=== PATIENT | male | born 1950 | race Caucasian/White ===

== ENCOUNTER 2019-07-26 08:46 | Inpatient (IN) | payer MEDICARE ==
[~2019-07-26] VITALS: Ht 172.7 cm; Wt 69.9 kg
--- NOTE | ~2019-07-26 | PROC ---
[facility] [address] [place] [address] PROCEDURE REPORT Name: EVE PAPPAS Room: [address] IN M.R.#: [id number] Admission: 07/26/19 Attend Phys: Liang Castaneda Discharge: 08/02/19 Date of : 48 Report #: [id number] THIS REPORT FOR: //name// cc: Clarisse Chance MD, Katrina MD ~ THIS REPORT FOR: //name// For GI report, please see the Provation report in Perceptive 7 content. By: [facility]3Medical Records Staff [facility] /SINGH
--- NOTE | ~2019-07-26 | PROC ---
[facility] [address] [place] [address] PROCEDURE REPORT Name: EVE PAPPAS Room: [address] IN M.R.#: [id number] Admission: 07/26/19 Attend Phys: Liang Castaneda Discharge: 08/02/19 Date of : 48 Report #: [id number] THIS REPORT FOR: //name// cc: Clarisse Chance MD, Katrina MD ~ THIS REPORT FOR: //name// For GI report, please see the Provation report in Perceptive 7 content. By: [facility]5Medical Records Staff [facility] /SINGH
[2019-07-26 08:54] VITALS: BP 171/97
[2019-07-26] MEDS ORDERED: TYLOPHEN500 MG PO (08:59)
[2019-07-26] MEDS ORDERED: ASPIRIN325 PO (08:59)
[2019-07-26 09:31] LABS: URINE BILIRUBIN NEGATIVE (Negative); URINE BLOOD NEGATIVE (Negative); URINE CLARITY CLEAR; URINE COLOR YELLOW; URINE GLUCOSE-RANDOM NEGATIVE (Negative); URINE KETONES NEGATIVE (Negative); URINE LEUKOCYTES-REFLEX NEGATIVE (Negative); URINE NITRITE-REFLEX NEGATIVE (Negative); URINE PROTEIN NEGATIVE (Negative)
[2019-07-26 09:53] LABS: ABSOLUTE BASOPHILS 0.1 thou/uL (0.0-0.2); ABSOLUTE EOSINOPHILS 0.1 thou/uL (0.0-0.7); ABSOLUTE LYMPHOCYTES 1.3 thou/uL (0.8-5.3); ABSOLUTE MONOCYTES 0.9 thou/uL (0.0-1.2); ABSOLUTE NEUTROPHILS 8.2 thou/uL (1.6-8.1); BASOPHILS 0.5 %; EOSINOPHILS 1.2 %; HEMATOCRIT 41.9 % (42.0-52.0); HEMOGLOBIN 14.1 gm/dL (14.0-18.0); MCH 31.1 pg (26.0-34.0); MCHC 33.6 g/dL (28.0-37.0); MCV 92.6 fL (80.0-100.0); MONOCYTES 8.1 %; MPV 8.4 fl. (7.2-11.1); NUCLEATED RBCS 0 /100WBC; PLATELET COUNT* 337 thou/uL (150-400); POLYS 78.2 %; RBC 4.53 mil/uL (4.50-6.00); RDW-CV 13.5 % (10.5-14.5); WBC 10.5 thou/uL (4.0-11.0)
[2019-07-26 10:01] LABS: CALCIUM 9.3 mg/dL (8.5-10.1); CREATININE 0.8 mg/dL (0.6-1.3); POTASSIUM 4.2 mmol/L (3.5-5.1)
[2019-07-26 10:13] LABS: ALBUMIN 3.5 g/dL (3.4-5.0); TOTAL BILIRUBIN 0.3 mg/dL (<0.1-1.0); TOTAL PROTEIN 8.1 g/dL (6.4-8.2)
[2019-07-26 14:35] VITALS: BP 126/67
[2019-07-26 14:57] VITALS: BP 145/76
[2019-07-26] MEDS ORDERED: ADVIL200 M3 PO (15:41)
[2019-07-26 20:00] VITALS: BP 111/66
[2019-07-26 23:57] VITALS: BP 96/60
[2019-07-27 03:21] LABS: ABSOLUTE LYMPHOCYTES 1.1 thou/uL (0.8-5.3); ABSOLUTE MONOCYTES 0.9 thou/uL (0.0-1.2); ABSOLUTE NEUTROPHILS 9.7 thou/uL (1.6-8.1); BASOPHILS 0.3 %; EOSINOPHILS 0.2 %; HEMATOCRIT 38.9 % (42.0-52.0); LYMPHOCYTES 9.5 %; MCH 30.9 pg (26.0-34.0); MCHC 33.5 g/dL (28.0-37.0); MCV 92.2 fL (80.0-100.0); MONOCYTES 7.4 %; MPV 8.8 fl. (7.2-11.1); NUCLEATED RBCS 0 /100WBC; PLATELET COUNT* 293 thou/uL (150-400); POLYS 82.6 %; RBC 4.22 mil/uL (4.50-6.00); RDW-CV 13.8 % (10.5-14.5); WBC 11.7 thou/uL (4.0-11.0)
[2019-07-27 03:41] LABS: ALBUMIN 2.7 g/dL (3.4-5.0); CALCIUM 8.1 mg/dL (8.5-10.1); CREATININE 0.8 mg/dL (0.6-1.3); POTASSIUM 4.1 mmol/L (3.5-5.1); TOTAL BILIRUBIN 0.9 mg/dL (<0.1-1.0); TOTAL PROTEIN 6.6 g/dL (6.4-8.2)
[2019-07-27 08:00] VITALS: BP 96/60; BP 97/60
[2019-07-27 20:00] VITALS: BP 100/56
[2019-07-28 00:57] VITALS: BP 139/82
[2019-07-28 08:15] VITALS: BP 96/60; BP 98/54
[2019-07-28 13:26] LABS: HEMATOCRIT 35.6 % (42.0-52.0); MCH 31.4 pg (26.0-34.0); MCHC 33.7 g/dL (28.0-37.0); MCV 93.2 fL (80.0-100.0); MPV 9.4 fl. (7.2-11.1); NUCLEATED RBCS 0 /100WBC; PLATELET COUNT* 264 thou/uL (150-400); RBC 3.82 mil/uL (4.50-6.00); WBC 12.2 thou/uL (4.0-11.0)
[2019-07-28 13:35] LABS: ALBUMIN 2.2 g/dL (3.4-5.0); CALCIUM 8.1 mg/dL (8.5-10.1); CREATININE 1.2 mg/dL (0.6-1.3); POTASSIUM 3.5 mmol/L (3.5-5.1); TOTAL BILIRUBIN 3.5 mg/dL (<0.1-1.0); TOTAL PROTEIN 6.1 g/dL (6.4-8.2)
[2019-07-28 13:51] LABS: ABSOLUTE BASOPHILS 0.1 thou/uL (0.0-0.2); ABSOLUTE MONOCYTES 0.5 thou/uL (0.0-1.2); ABSOLUTE NEUTROPHILS 10.6 thou/uL (1.6-8.1); ATYPICAL LYMPHS 3 %; PLATELET ESTIMATE ADEQUATE
[2019-07-28 16:30] VITALS: BP 118/70
[2019-07-28 20:00] VITALS: BP 106/51
[2019-07-28 23:59] VITALS: BP 114/72
[2019-07-29 04:35] LABS: ABSOLUTE LYMPHOCYTES 0.8 thou/uL (0.8-5.3); ABSOLUTE MONOCYTES 0.5 thou/uL (0.0-1.2); ABSOLUTE NEUTROPHILS 9.7 thou/uL (1.6-8.1); BASOPHILS 0.2 %; HEMATOCRIT 32.2 % (42.0-52.0); HEMOGLOBIN 10.8 gm/dL (14.0-18.0); LYMPHOCYTES 7.4 %; MCH 30.8 pg (26.0-34.0); MCHC 33.4 g/dL (28.0-37.0); MCV 92.3 fL (80.0-100.0); MONOCYTES 4.6 %; MPV 9.1 fl. (7.2-11.1); NUCLEATED RBCS 0 /100WBC; PLATELET COUNT* 247 thou/uL (150-400); POLYS 87.8 %; RBC 3.49 mil/uL (4.50-6.00); RDW-CV 13.7 % (10.5-14.5); WBC 11.1 thou/uL (4.0-11.0)
[2019-07-29 05:01] LABS: CALCIUM 8.4 mg/dL (8.5-10.1); CREATININE 0.8 mg/dL (0.6-1.3); POTASSIUM 4.2 mmol/L (3.5-5.1); TOTAL BILIRUBIN 3.7 mg/dL (<0.1-1.0); TOTAL PROTEIN 6.1 g/dL (6.4-8.2)
[2019-07-29 12:18] VITALS: BP 123/67
[2019-07-29 16:33] VITALS: BP 127/66
[2019-07-29 20:00] VITALS: BP 142/87
[2019-07-30] VITALS: BP 135/40
[2019-07-30 04:00] VITALS: BP 115/63; BP 140/42
[2019-07-30 05:22] LABS: ALBUMIN 1.8 g/dL (3.4-5.0); CALCIUM 8.3 mg/dL (8.5-10.1); CREATININE 0.9 mg/dL (0.6-1.3); POTASSIUM 3.7 mmol/L (3.5-5.1); TOTAL PROTEIN 5.8 g/dL (6.4-8.2)
[2019-07-30 05:59] LABS: ABSOLUTE BASOPHILS 0.1 thou/uL (0.0-0.2); ABSOLUTE EOSINOPHILS 0.1 thou/uL (0.0-0.7); ABSOLUTE MONOCYTES 0.7 thou/uL (0.0-1.2); ABSOLUTE NEUTROPHILS 7.6 thou/uL (1.6-8.1); BASOPHILS 0.6 %; EOSINOPHILS 0.9 %; HEMATOCRIT 34.4 % (42.0-52.0); HEMOGLOBIN 11.3 gm/dL (14.0-18.0); LYMPHOCYTES 19.4 %; MCH 30.6 pg (26.0-34.0); MCV 92.9 fL (80.0-100.0); MONOCYTES 6.3 %; MPV 9.4 fl. (7.2-11.1); NUCLEATED RBCS 0 /100WBC; POLYS 72.8 %; RBC 3.71 mil/uL (4.50-6.00); RDW-CV 13.9 % (10.5-14.5); WBC 10.4 thou/uL (4.0-11.0)
[2019-07-30 06:51] LABS: PLATELET COUNT* 287 thou/uL (150-400)
[2019-07-30 07:20] VITALS: BP 124/72
[2019-07-30 11:58] VITALS: BP 118/52
[2019-07-30 16:39] VITALS: BP 115/67
[2019-07-30 20:00] VITALS: BP 127/67
[2019-07-31] VITALS: BP 117/68
[2019-07-31 03:54] VITALS: BP 114/60
[2019-07-31 05:52] VITALS: BP 96/60
[2019-07-31 16:00] VITALS: BP 122/67
[2019-07-31 20:45] VITALS: BP 131/71
[2019-08-01] VITALS: BP 107/54
[2019-08-01 04:33] LABS: HEMATOCRIT 29.8 % (42.0-52.0); MCH 30.5 pg (26.0-34.0); MCHC 33.6 g/dL (28.0-37.0); MCV 90.7 fL (80.0-100.0); MPV 8.2 fl. (7.2-11.1); RBC 3.28 mil/uL (4.50-6.00); RDW-CV 13.9 % (10.5-14.5); WBC 13.9 thou/uL (4.0-11.0)
[2019-08-01 04:56] LABS: ALBUMIN 1.9 g/dL (3.4-5.0); CALCIUM 7.9 mg/dL (8.5-10.1); CREATININE 0.8 mg/dL (0.6-1.3); POTASSIUM 3.9 mmol/L (3.5-5.1); TOTAL BILIRUBIN 0.6 mg/dL (<0.1-1.0); TOTAL PROTEIN 5.7 g/dL (6.4-8.2)
[2019-08-01 04:59] LABS: ALBUMIN 1.9 g/dL (3.4-5.0); DIRECT BILIRUBIN 0.3 mg/dL (<0.1-0.3); TOTAL BILIRUBIN 0.6 mg/dL (<0.1-1.0); TOTAL PROTEIN 5.8 g/dL (6.4-8.2)
[2019-08-01 08:23] VITALS: BP 148/80
[2019-08-01 11:32] VITALS: BP 96/60
[2019-08-01 12:02] VITALS: BP 144/85
--- NOTE | 2019-08-01 14:07 | PATH ---
[address] [address] PATHOLOGY RPT PROCEDURE Name: HECTOR PAPPAS Room: [address] IN ..#: [id number] Admission: 07/26/19 Date of : 48 Discharge: Report #: [id number] Path Case #: [id number] [facility] Accession Number: [id number] . 01 Material submitted: . gallbladder - GALLBLADDER AND CONTENTS . 01 Clinical history: . Cholecystitis . 02 Diagnosis: Gallbladder and contents: - Chronic and acute ulcerative cholecystitis with mural fibrosis, acute serositis and cholelithiasis. (SAVAGE:kristofer; 08/01/2019) MBR 08/01/2019 1205 Local . 02 Electronically signed: . Delfino Foley MD, Pathologist NPI- [id number] . 01 Gross description: . The specimen is received in formalin labeled "Pappas, Hector, gallbladder and contents" and consists of a punctured deflated pink leslie gallbladder measuring 10.8 x 5.5 x 2.0 cm which is partially encased with yellow adipose tissue. The margin is inked black. Opening reveals a lumen filled with mucinous brown fluid and multiple smooth brown calculi measuring up to 1.3 cm. The mucosa is pink-green and gangrenous with an average wall thickness of 0.2 cm. No masses are identified. Type Casting Machine Operator sections are submitted in A1-A2. (SDY; 07/31/2019) SYU/SYU 07/31/2019 1521 Local . 02 Pathologist provided ICD-10: K80.12, K65.8 . 02 CPT . 681364 Specimen Comment: A courtesy copy of this report has been sent to [phone] Specimen Comment: Report sent to Performed at: [address], [place], [place] [id number] MD Shin Middleton MD Phone: [phone] Performed at: 02 [facility] [address], [place], [place] [id number] MD Delfino Foley MD Phone: [phone]
[2019-08-01 20:00] VITALS: BP 132/72
[2019-08-02 05:07] LABS: CALCIUM 8.6 mg/dL (8.5-10.1); CREATININE 0.9 mg/dL (0.6-1.3); POTASSIUM 4.6 mmol/L (3.5-5.1); TOTAL BILIRUBIN 1.8 mg/dL (<0.1-1.0); TOTAL PROTEIN 6.5 g/dL (6.4-8.2)
[2019-08-02 08:00] VITALS: BP 149/97
[2019-08-02 16:39] VITALS: BP 150/91
[2019-08-02 16:42] LABS: ALBUMIN 2.1 g/dL (3.4-5.0); DIRECT BILIRUBIN 0.5 mg/dL (<0.1-0.3); TOTAL BILIRUBIN 0.7 mg/dL (<0.1-1.0); TOTAL PROTEIN 6.6 g/dL (6.4-8.2)
[2019-08-02] MEDS ORDERED: LEVAQUIN 500 M500 M3 PO (16:58)
[2019-08-02 16:59] VITALS: BP 150/91
[2019-08-02 17:02] VITALS: BP 150/91
--- NOTE | 2019-08-04 12:17 | EKG ---
[place] [address] ELECTROCARDIOGRAM REPORT Name: PAPPASEVE Crowe Room: [address] IN M.R.#: [id number] Admission: 07/26/19 Attend Phys: Morgan Hoyt Discharge: 08/02/19 Date of : 48 Date of Service: 07/26/19 0926 Report #: [id number] THIS REPORT FOR: //name// [facility] ED Test Date: 2019-07-26 Test Time: 09:26:45 Pat Name: EVE PAPPAS Department: Room: [facility] Gender: M Bindery Worker: : 1950 Requested By: Abe Hardy Order Number: [id number] MD: Surjit Ley Measurements Intervals [place] Rate: 69 P: 41 ID: [id number] QRS: 81 QRSD: 110 T: 72 QT: 445 QTc: 477 Interpretive Statements Sinus rhythm Borderline right axis deviation Baseline wander in lead(s) V2,V6 No previous ECG available for comparison Electronically Signed On 07-26-2019 17:00:09 CDT by Surjit Ley [email or web address] <ELECTRONICALLY SIGNED> By: Surjit Ley MD, FACC 07/26/19 1700 0926 5 Surjit Ley MD, [facility] /EPI
--- NOTE | 2019-08-10 08:19 | OP ---
[facility] [address] [place] [address] OPERATIVE REPORT Name: PAPPASEVE Room: [address] IN M.R.#: [id number] Admission: 07/26/19 Attend Phys: Liang Castaneda Discharge: 08/02/19 Date of : 48 Report #: [id number] THIS REPORT FOR: //name// cc: Clarisse Chance MD, Katrina MD ~ THIS REPORT FOR: //name// CC: Clarisse Hoyt DATE OF SERVICE: 07/31/2019 PREOPERATIVE DIAGNOSIS: Acute cholecystitis with choledocholithiasis. POSTOPERATIVE DIAGNOSES: Acute cholecystitis with choledocholithiasis. OPERATION: Laparoscopic cholecystectomy with intraoperative cholangiogram. SURGEON: Jai Nguyen MD ANESTHESIA: General. ESTIMATED BLOOD LOSS: 50 mL. SPECIMEN: Gallbladder. DESCRIPTION OF PROCEDURE: After informed consent was obtained, the patient was brought to the operating room and placed supine. SCDs were placed and working, preoperative antibiotics were administered, general anesthesia was induced. The abdomen was prepped and draped in the usual sterile fashion. A 10 mm incision was made above the umbilicus. Fascia was incised and a trocar was placed. Pneumoperitoneum was established. Three right upper quadrant 5 mm ports were placed. Gallbladder was grasped at the fundus and retracted cephalad. Infundibulum was grasped and retracted laterally. I dissected out the cystic duct and cystic artery. Cystic duct was clipped. A cholangiogram catheter was inserted. Cholangiogram was performed. This demonstrated filling of the cystic duct, common bile duct, hepatic duct, bifurcation of the hepatics. There was still a significant amount of stones and debris in the common bile duct. The catheter was then removed. The cystic duct was clipped and ligated leaving a PDS Endoloop on the remaining duct. The cystic artery was clipped and ligated. The gallbladder was then taken off the liver bed with electrocautery. It was placed into an Endopouch and removed. The fascia was then closed with a [id number]-bf-zgymm 0 Vicryl. Skin was closed with 4-0 Monocryl. Incisions were sealed with Dermabond. COMPLICATIONS: [place] [address] OPERATIVE REPORT Name: EVE PAPPAS Room: [address]#: [id number] Admission: 07/26/19 Attend Phys: Liang Castaneda Discharge: 08/02/19 Date of : 48 Report #: [id number] DISPOSITION: The patient was taken to recovery in satisfactory condition. <ELECTRONICALLY SIGNED> By: Jai Nguyen MD 08/10/19 0819 1219 [id number] Nguyen MD /nt
--- NOTE | 2019-08-11 10:43 | CON ---
[address] [address] CONSULTATION Name: PAPPASEVE Room: [address] IN M.R.#: [id number] Admission: 07/26/19 Attend Phys: Liang Castaneda Discharge: 08/02/19 Date of : 48 Report #: [id number] THIS REPORT FOR: //name// cc: Clarisse Chance MD, Katrina MD ~ THIS REPORT FOR: //name// CC: Clarisse Hoyt HISTORY OF PRESENT ILLNESS: This is a pleasant 68-year-old gentleman with past medical history significant for hypertension, who is presenting for evaluation of right upper quadrant abdominal pain. The patient reports abdominal pain started 2 days back after dinner. The patient reports he expected the pain to go away, but this did not and subsequently he presented to the ER. The patient reports the pain occurred in the epigastrium and radiates to the back associated with nausea, loss of appetite. The patient denies any vomiting, hematemesis, hematochezia, weight loss or other alarm symptoms. He reports intermittent episodes of abdominal pain in the past. PAST MEDICAL HISTORY: Hypertension. PAST SURGICAL HISTORY: Appendectomy, cervical fusion. SOCIAL HISTORY: The patient is an active smoker. Denies significant alcohol or recreational drug use. FAMILY HISTORY: There is no family history of colon cancer or Bean related neoplasia. REVIEW OF SYSTEMS: A comprehensive 10-point review of systems is negative except for what was mentioned in the HPI. PHYSICAL EXAMINATION: VITAL SIGNS: Blood pressure 97/60, pulse rate 88, respiratory rate 18, temperature 36.8. GENERAL: The patient is alert, awake, oriented x 3. HEENT: Pupils are equal, round, reactive to light and accommodation. Mucous membranes are moist. There is no congestion. LUNGS: Clear to auscultation bilaterally. CARDIOVASCULAR: Rate and rhythm regular, S1, S2 present. ABDOMEN: Soft. There is tenderness in the epigastric and right upper quadrant region. Mills sign positive. LABORATORY DATA: Hemoglobin 13.0, hematocrit 38.9, platelet count 293, WBC count 11.7. Sodium 137, potassium 4.1, chloride 104, bicarbonate 21, BUN 13, creatinine 0.8, total bilirubin 0.9, AST 303, ALT 243, alkaline phosphatase 302. [place] [address] CONSULTATION Name: EVE PAPPAS Room: [address]#: [id number] Admission: 07/26/19 Attend Phys: Liang Castaneda Discharge: 08/02/19 Date of : 48 Report #: [id number] IMAGING: CT abdomen and pelvis demonstrates cholelithiasis with pericholecystic fluid consisting for cholecystitis ____ to have intrahepatic biliary ductal dilatation with 2 gallstones noted in the common bile duct. ASSESSMENT AND PLAN: Pleasant 68-year-old gentleman with right upper quadrant pain, presents with both choledocholithiasis and cholecystitis. Would recommend an ERCP, sphincterotomy, stone extraction. Following this, the patient can be evaluated for cholecystectomy. Further recommendations will be based on the results of the above procedure. <ELECTRONICALLY SIGNED> By: Dany Ingram MD 08/11/19 1043 1427 [id number] Ingram MD /nt
== END 2019-08-02 17:50 | disposition home or self-care (01) | DRG 418 ==
LOC: M.ERS 08:46 → M.TBA-ER 11:05 → M.2W 11:05
PROVIDERS: Emergency Medicine Emergency Medical Services; Internal Medicine; Internal Medicine Gastroenterology; ADMIT Internal Medicine
PROC: 0F7D8DZ Dilation of Pancreatic Duct with Intraluminal Device, Via Natural or Artificial Opening Endoscopic (ICD-10-PCS; 2019-07-27)
PROC: 0FC98ZZ Extirpation of Matter from Common Bile Duct, Via Natural or Artificial Opening Endoscopic (ICD-10-PCS; 2019-07-28)
PROC: 0FPD8DZ Removal of Intraluminal Device from Pancreatic Duct, Via Natural or Artificial Opening Endoscopic (ICD-10-PCS; 2019-07-28)
PROC: 0FT44ZZ Resection of Gallbladder, Percutaneous Endoscopic Approach (ICD-10-PCS; principal; 2019-07-31)
PROC: BF101ZZ Fluoroscopy of Bile Ducts using Low Osmolar Contrast (ICD-10-PCS; principal; 2019-07-31)
PROC: 0F7D8ZZ Dilation of Pancreatic Duct, Via Natural or Artificial Opening Endoscopic (ICD-10-PCS; principal; 2019-07-31)
PROC: BF181ZZ Fluoroscopy of Pancreatic Ducts using Low Osmolar Contrast (ICD-10-PCS; principal; 2019-07-31)
PROC: 0F798ZZ Dilation of Common Bile Duct, Via Natural or Artificial Opening Endoscopic (ICD-10-PCS; 2019-08-01)
DX: K80.42 Calculus of bile duct with acute cholecystitis without obstruction (principal); E44.0 Moderate protein-calorie malnutrition; I10 Essential (primary) hypertension; F17.210 Nicotine dependence, cigarettes, uncomplicated; M81.0 Age-related osteoporosis without current pathological fracture; Z87.442 Personal history of urinary calculi; Z90.49 Acquired absence of other specified parts of digestive tract; Z79.82 Long term (current) use of aspirin; Z98.1 Arthrodesis status; Z79.899 Other long term (current) drug therapy